=== PATIENT | female | born 1995 | race African-American/Black ===

== ENCOUNTER 2018-06-08 05:59 | Inpatient (IN) | payer OTHER ==
[2018-06-08] MEDS ORDERED: Bicitra 30 ML UDCUP PO SCH (06:07)
[2018-06-08] MEDS ORDERED: Butorphanol Tartrate 1 MG/ML VIAL SLOW IVP PRN (06:07)
[2018-06-08] MEDS ORDERED: Lactated Ringer's 1,000 ML IV SCH (06:07)
[2018-06-08] MEDS ORDERED: Ondansetron PF 4 MG/2 ML Vial IVP PRN ×3 (06:07→09:53)
[2018-06-08] MEDS ORDERED: CEFAZOLIN/Water 2 GM/20 ML SYRINGE SLOW IVP SCH (06:07)
[2018-06-08] MEDS ORDERED: Promethazine HCl 25 MG/ML VIAL IM PRN ×2 (06:07→09:46)
[2018-06-08] MEDS ORDERED: CEFAZOLIN 2 GM/50 ML BAG ONE (07:06)
[2018-06-08 07:10] VITALS: BMI 35.4
[2018-06-08 07:10] LABS: Hemoglobin 10.6 g/dL (12.0-16.0); Mean Corpuscular Hemoglobin 28.2 pg (27.0-31.0); Mean Corpuscular Volume 85.3 fL (78.0-98.0); Mean Platelet Volume 10.2 fL (7.4-10.4); Platelet Count 178 thou/uL (130-400); RBC Distribution Width 14.6 % (11.5-14.5); Red Blood Cell (RBC) Count 3.76 mill/uL (4.20-5.40); White Blood Cell (WBC) Count 5.5 thou/uL (4.8-10.8)
[2018-06-08 07:36] LABS: HBSAg Index 0.26 S/CO (0-0.99); Hep B Surf Ag Non-Reactive S/CO (NonReactive); Syphilis Antibody Nonreactive (Nonreactive); Syphilis Antibody Index 0.06 S/CO (<1.00 Non-Reactive)
[2018-06-08] MEDS ORDERED: Morphine PF 1 MG/ML SYR ONE (08:34)
[2018-06-08] MEDS ORDERED: Ondansetron PF 4 MG/2 ML Vial ONE (08:34)
[2018-06-08] MEDS ORDERED: PHENYLEPHRINE-NS 100 MCG/ML 10 ML SYRINGE ONE (08:34)
[2018-06-08] MEDS ORDERED: Oxytocin 10 UNITS/ML VIAL ONE ×2 (08:34→09:41)
[2018-06-08] MEDS ORDERED: Fentanyl 100 MCG/2 ML VIAL ONE (09:21)
[2018-06-08] MEDS ORDERED: Ketorolac Tromethamine 30 MG/ML VIAL ONE (09:22)
[2018-06-08] MEDS ORDERED: HYDROmorphone 2 MG/ML VIAL SLOW IVP PRN (09:46)
[2018-06-08] MEDS ORDERED: diphenhydrAMINE 50 MG/ML VIAL IVP PRN (09:46)
[2018-06-08] MEDS ORDERED: Promethazine HCl 25 MG SUPP PR PRN (09:46)
[2018-06-08] MEDS ORDERED: Eucerin (Mineral Oil/Petrolatum,White) 30 gm Jar TOP PRN (09:46)
[2018-06-08] MEDS ORDERED: Naloxone HCl 0.4 mg/ml Vial IV PRN (09:46)
[2018-06-08] MEDS ORDERED: Naloxone HCl 0.4 mg/ml Vial IVP PRN ×2 (09:46)
[2018-06-08] MEDS ORDERED: Meperidine HCl/PF 25 MG/ML VIAL SLOW IVP PRN (09:46)
[2018-06-08] MEDS ORDERED: Ondansetron HCl/PF 4 MG/2 ML Vial IVP PRN (09:46)
[2018-06-08] MEDS ORDERED: L&D-Morphine 4 MG/ML VIAL SLOW IVP PRN (09:46)
[2018-06-08] MEDS ORDERED: diphenhydrAMINE 25 MG CAP PO PRN (09:53)
[2018-06-08] MEDS ORDERED: Zolpidem Tartrate 5 MG TAB PO PRN (09:53)
[2018-06-08] MEDS ORDERED: Bisacodyl 10 MG SUPP PR PRN (09:53)
[2018-06-08] MEDS ORDERED: Lanolin Ointment 7 GM TUBE TOP PRN (09:53)
[2018-06-08] MEDS ORDERED: Misoprostol 200 MCG TAB PR PRN (09:53)
[2018-06-08] MEDS ORDERED: Simethicone Chewable 80 MG TAB PO PRN (09:53)
[2018-06-08] MEDS ORDERED: Acetaminophen 325 MG TAB PO PRN (09:53)
[2018-06-08] MEDS ORDERED: Ketorolac Tromethamine 30 MG/ML VIAL IVP SCH (10:00)
[2018-06-08] MEDS ORDERED: Communication Order-Pharmacy FS SCH (10:00)
[2018-06-08] MEDS ORDERED: NS / Oxytocin 40 units/1000ml 1,000 ML IV SCH (10:00)
[2018-06-08] MEDS: Ibuprofen 800 MG TAB PO SCH (13:44)
[2018-06-08] MEDS: Ketorolac Tromethamine 30 MG/ML VIAL IVP PRN ×2 (14:53→23:03)
[2018-06-08] MEDS: Lactated Ringer's 1,000 ML IV SCH ×2 (14:53→23:04)
--- NOTE | 2018-06-08 17:30 | OP ---
DATE OF PROCEDURE: 06/08/2018 PREOPERATIVE DIAGNOSES: 1. Term intrauterine at 39 and 2/7th weeks. 2. Fourth degree perineal laceration. 3. Declines trial of labor. POSTOPERATIVE DIAGNOSES: 1. Term intrauterine at 39 and 2/7th weeks. 2. Fourth degree perineal laceration. 3. Declines trial of labor. PROCEDURE PERFORMED: Primary low-transverse section. ANESTHESIA: Spinal catheterization. FINDINGS: 1. Vigorous male , 7 pounds 11 ounces, Apgars 9 and 9. 2. Normal uterus, tubes, and ovaries. COMPLICATIONS: None. SPECIMENS REMOVED: Cord blood. ESTIMATED BLOOD LOSS: Approximately 750 mL. DESCRIPTION OF PROCEDURE: After thorough consent and counseling, Ms. Lebron was taken to the operating room and an adequate level of anesthesia was obtained via spinal catheterization. The patient was prepped and draped in the usual sterile fashion for abdominal surgery. A Hankins was placed in the bladder, which was draining clear urine. Attention was then turned to perform a primary low-transverse section. A Pfannenstiel incision was made and carried sharply to the fascia, which was also sharply incised. The midline was identified and the rectus muscles were retracted laterally. The abdominal peritoneal cavity was entered with the usual safeguards carried out. Upon entering the abdomen, a retractor was placed. A bladder flap was created on the vesicouterine peritoneum. A bladder blade was then placed. A low-transverse incision was made on the well-developed lower uterine segment. Upon entering the uterus, copious amount of bleeding was encountered secondary to lower venous plexus and anterior placenta. Amniotomy was performed and clear amniotic fluid was visualized. The incision was bluntly extended. The was noted to be vertex presentation in the occiput anterior position. Head was delivered and baby was bulb suctioned on the abdomen. Shoulders and body were then delivered in an atraumatic fashion. The cord was doubly clamped and cut and the was handed to the Neonatology Team in attendance for the delivery. The infant was noted to be a vigorous viable male, weighing 7 pounds 11 ounces with Apgars 9 and 9 obtained at 1 and 5 minutes respectively. Cord blood was obtained. The placenta was manually removed from the uterus. The uterine cavity was cleared of any remaining clot and fluid. The uterus was exteriorized and vigorous massage to the uterus was performed. Good tone was noted. The low-transverse incision was closed with a running locking LigaSure of #1 chromic. A second imbricating layer was placed to facilitate good hemostasis. The vesicouterine peritoneum did not have to be closed. The posterior cul-de-sac and gutters were cleared of clot and fluid. The uterus, fallopian tubes, and ovaries were inspected and noted to be normal. Seprafilm was applied to the low-transverse incision and to the anterior aspect of the uterus for adhesion prevention. The uterus was returned to the abdomen and good tone and hemostasis was again appreciated. Lap, sponge, and needle counts were correct. The peritoneum was closed with a running LigaSure of 2-0 Vicryl suture. The rectus muscles were reapproximated at the midline with interrupted LigaSure of 2-0 Vicryl. The fascia was then closed with 2 LigaSure's of 0 Vicryl suture, which were tied in the midline. The incision was irrigated with copious amount of warm normal saline. The subcutaneous tissue was closed with interrupted LigaSure of 2-0 plain. The skin was closed with a subcuticular stitch of 4-0 Monocryl and dressed with Dermabond. Lap, sponge, and needle counts were correct x3. The estimated blood loss during the surgical procedure was approximately 750 mL. A pressure dressing and ice packs were subsequently placed on the incision. The patient was returned to the recovery room in good condition. Immediately following the surgery, the patient and family were made aware of the surgical procedure and the operative findings. Questions answered to their satisfaction. Mother and baby were doing well postoperatively. Job ID: [id number]
[2018-06-08] MEDS ORDERED: Meperidine HCl/PF 25 MG/ML VIAL IM PRN (20:00)
[2018-06-08] MEDS ORDERED: HYDROcodone/Acetaminophen 5/325 mg Tablet PO PRN (20:00)
[2018-06-09] MEDS: Ferrous Sulfate 325 MG TAB PO SCH ×3 (06:15→21:55)
[2018-06-09] MEDS: Ibuprofen 800 MG TAB PO SCH ×4 (06:15→21:54)
[2018-06-09] MEDS: Docusate Calcium (SURFAK) 240 MG CAP PO SCH ×3 (06:15→21:55)
[2018-06-09] MEDS: Ketorolac Tromethamine 30 MG/ML VIAL IVP PRN (06:16)
[2018-06-09 07:18] LABS: Hemoglobin 7.7 g/dL (12.0-16.0); Mean Corpuscular HGB CONC 31.9 g/dL (32.0-36.0); Mean Corpuscular Hemoglobin 27.7 pg (27.0-31.0); Mean Platelet Volume 9.6 fL (7.4-10.4); Platelet Count 154 thou/uL (130-400); RBC Distribution Width 14.8 % (11.5-14.5); Red Blood Cell (RBC) Count 2.78 mill/uL (4.20-5.40); White Blood Cell (WBC) Count 7.3 thou/uL (4.8-10.8)
[2018-06-09] MEDS ORDERED: Adacel (T-DAP) 0.5 ML SYRINGE IM ONE (09:00)
[2018-06-09] MEDS: Prenatal Vitamin 1 TAB PO SCH (09:53)
[2018-06-09] MEDS: HYDROcodone/Acetaminophen 5/325 mg Tablet PO PRN ×3 (09:53→23:56)
[2018-06-10] MEDS: Ibuprofen 800 MG TAB PO SCH (05:43)
[2018-06-10 08:32] VITALS: BP 112/71; TEMP 98.9
[2018-06-10] MEDS: Prenatal Vitamin 1 TAB PO SCH (08:55)
[2018-06-10] MEDS: Ferrous Sulfate 325 MG TAB PO SCH (08:55)
[2018-06-10] MEDS: Docusate Calcium (SURFAK) 240 MG CAP PO SCH (08:55)
== END 2018-06-10 13:20 | disposition home or self-care (01) | DRG 788 ==
LOC: L&D 05:59 → 3SW 11:32 → EDSTATUS 17:08
PROVIDERS: ADMIT Obstetrics & Gynecology; ATTEND Obstetrics & Gynecology
PROC: 10D00Z1 Extraction of Products of Conception, Low, Open Approach (ICD-10-PCS; principal; 2018-06-08)
DX: O34.211 Maternal care for low transverse scar from previous cesarean delivery (principal); O75.82 Onset (spontaneous) of labor after 37 completed weeks of gestation but before 39 completed weeks gestation, with delivery by (planned) cesarean section; Z3A.39 39 weeks gestation of pregnancy; Z37.0 Single live birth
CPT/HCPCS: 36415; 51702; 85027; 86780; 86850; 86900; 86901; 87340; 90715; J1885; J2274; J2405; J2590; J3010